=== PATIENT | female | born 1970 | race Asian ===

== ENCOUNTER → 2016-11-15 | Outpatient (CLI) | payer OTHER, MEDICAID ==
--- NOTE | 2016-11-16 09:42 | NM ---
Nuclear Medicine Thyroid Uptake and Scan Clinical Indications: Low TSH level (R946) palpitations.. Technique: The patient received 273 microcuries of 123 iodine orally and uptakes were calculated at six and twenty-four hours. Imaging was performed at six hours in the frontal and both anterior obliq ue projections. Findings: There is mild increased uptake of the left lobe the thyroid when compared to the right lobe . There is a generalized area of increased uptake involving the upper pole left lobe of the thyroid a s well as ill-defined area lower pole left lobe of the thyroid. The relative uptake of the left lobe of the thyroid is 71% with the right lobe 29%. The uptake measured at six hours was 9.5 % (normal 6 - 12%) and at 24 hours was 15.4 % (normal 10 - 3 5%). These values are within normal limits. Impression: 1. Generalized area of increased uptake upper pole left lobe of the thyroid as well as more subtle ar ea lower pole left lobe. 2. Homogeneous although relatively decreased uptake involving the right lobe of the thyroid. 3. Consider possibility of Iso-functioning nodules left lobe of thyroid. Consider correlation with th yroid ultrasound.
== END ==
LOC: FIMAGING 09:06
PROVIDERS: ATTEND Family Medicine
DX: E07.9 Disorder of thyroid, unspecified (principal)
CPT/HCPCS: 78014; A9516

== ENCOUNTER → 2016-11-28 | Outpatient (CLI) | payer OTHER, MEDICAID ==
--- NOTE | 2016-11-28 16:13 | US ---
Thyroid Ultrasound History: R94.6, E04.1, low TSH. Comparison: Thyroid scan November 15, 2016. Technique: Longitudinal and transverse ultrasound imaging of the thyroid gland. Findings: The right lobe of the thyroid measures 1.2 x 1.1 x 4.4 cm. The thyroid is heterogeneous wi th multiple small nodules including two hypoechoic nodules in the superior and mid thyroid measuring 4 mm. The left lobe of the thyroid measures 1.2 x 1.0 x 4.9 cm. The thyroid is heterogeneous with multiple nodules, including a solid hypoechoic nodule in the superior pole of the left thyroid measuring 1.2 x 1.0 x 0.7 cm, with no appreciable calcifications. There is also a reference solid 8 x 4 x 4 mm nodu le in the mid left thyroid. The isthmus is normal. Impression: Bilateral thyroid nodules, measuring up to 1.2 cm in the superior left thyroid, below the threshold for biopsy per the [employer]. Consider follow-up ultrasound i n 6-12 months.
== END ==
LOC: CIMAGING 10:48
PROVIDERS: ATTEND Family Medicine
DX: E04.9 Nontoxic goiter, unspecified (principal)
CPT/HCPCS: 76536-PO

== ENCOUNTER → 2017-11-14 | Outpatient (CLI) | payer OTHER | LOC: CIMAGING 09:00 | PROVIDERS: ATTEND Family Medicine | DX: E04.2 Nontoxic multinodular goiter (principal) | CPT/HCPCS: 76536-PO ==

== ENCOUNTER → 2018-03-19 | Outpatient (CLI) | payer OTHER | LOC: CIMAGING 14:51 | PROVIDERS: ATTEND Obstetrics & Gynecology Gynecology | DX: D25.0 Submucous leiomyoma of uterus (principal); N83.291 Other ovarian cyst, right side; Z97.5 Presence of (intrauterine) contraceptive device | CPT/HCPCS: 76856-PO ==